=== PATIENT | male | born 1995 | race Caucasian/White ===

== ENCOUNTER 2017-11-07 11:16 | Emergency (ER) | payer OTHER ==
--- NOTE | 2017-11-07 13:18 | ED ---
Skin Complaint - HPI Summary HPI Summary: Pt here w/ forehead laceration at 1:00am today. Was doing clapping push ups on concrete when he fell forward and struck his face. Denies LOC, change in vision , nausea, vomiting, nasal or dental injury, neck pain, tinnitus, dizziness. He cleaned w/ antibacterial soap last night. Bleeding controlled. Here for aesthetic improvement. Believes his tetanus vaccine is UTD. Will confirm w Wong. - History of Current Complaint Chief Complaint: EDLacSutureRecheck Time Seen by Provider: 11/07/17 11:38 Stated Complaint: HEAD LAC Hx Obtained From: Patient Pain Intensity: 0 - Allergy/Home Medications Allergies/Adverse Reactions: Allergies Allergy/AdvReac Type Severity Reaction Status Date / Time No Known Allergies Allergy Verified 11/07/17 11:25 Home Medications: Home Medications FLUoxetine CAP* [PROzac CAP*] 20 mg PO DAILY 11/07/17 [History Confirmed ] PMH/Surg Hx/FS Hx/Imm Hx Previously Healthy: Yes Endocrine/Hematology History: Denies: Hx Anticoagulant Therapy, Hx Blood Disorders, Autoimmune Disease - Immunization History Immunizations Up to Date: Yes Infectious Disease History: No Infectious Disease History: Denies: Hx of Known/Suspected MRSA, Traveled Outside the [place] in Last 30 Days - Social History Occupation: Student Lives: Dormitory/Roommates Alcohol Use: Weekly Hx Substance Use: Yes Substance Use Type: Reports: Marijuana, Prescribed Hx Tobacco Use: Yes Smoking Status (MU): Current Some Day Smoker Review of Systems Constitutional: Negative Eyes: Negative ENT: Negative Cardiovascular: Negative Respiratory: Negative Gastrointestinal: Negative Positive: no symptoms reported Musculoskeletal: Negative Skin: Other - lac Neurological: Negative Psychological: Normal All Other Systems Reviewed And Are Negative: Yes Physical Exam Triage Information Reviewed: Yes Vital Signs On Initial Exam: Initial Vitals Temp Pulse Resp BP Pulse Ox 98.3 F 58 16 133/79 97 11/07/17 11:22 11/07/17 11:22 11/07/17 11:22 11/07/17 11:22 11/07/17 11:22 Vital Signs Reviewed: Yes Appearance: Positive: Well-Appearing, No Pain Distress, Well-Nourished Skin: Positive: Warm, Skin Color Reflects Adequate Perfusion, Dry - 2.5cm linear lac over central forehead - overlying abrasion - clean Head/Face: Positive: Normal Head/Face Inspection - no edema Eyes: Positive: Normal, EOMI, ESTRELLITA - no phgotophobia ENT: Positive: Hearing grossly normal Dental: Negative: Dental Fracture @ Neck: Positive: Supple, Nontender Respiratory/Lung Sounds: Positive: Breath Sounds Present Cardiovascular: Positive: Normal Musculoskeletal: Positive: Normal, Strength/ROM Intact Neurological: Positive: Normal, Sensory/Motor Intact, Alert, Oriented to Person Place, Time, CN Intact II-III Psychiatric: Positive: Normal Procedures - Laceration/Wound Repair 1 Location: face Description: Linear Length, Depth and Shape: 2.5cm x 2mm Betadine Prep?: No Laceration/Wound Explored: clean Closure: Skin Adhesive, SteriStrips Layer Closure?: No Diagnostics - Vital Signs Vital Signs Temp Pulse Resp BP Pulse Ox 11/07/17 12:41 55 146/83 99 11/07/17 12:40 58 98 11/07/17 11:22 98.3 F 58 16 133/79 97 - Laboratory Lab Statement: Any lab studies that have been ordered have been reviewed, and results considered in the medical decision making process. Course/Dx - Course Course Of Treatment: Patient's laceration approximated well with Steri-Strips and Dermabond. Given the overlying abrasion, was better fell to close wound without sutures. Discussed wound healing as well as scar prevention with patient. Also advised if his wound heals in a fashion he is not pleased with, he can consult with a plastic surgeon at a later date. Patient agrees with plan. - Diagnoses Provider Diagnoses: Facial laceration Discharge - Sign-Out/Discharge Documenting (check all that apply): Discharge/Admit/Transfer - Discharge Plan Condition: Stable Disposition: HOME Patient Education Materials: Skin Adhesive Care (ED), Steristrips (ED), Facial Laceration (ED) Referrals: [facility] - Wong LEMUS [Primary Care Provider] - Additional Instructions: Keep dressing clean and dry and in place for the next 48 hours. After that time , you may gently wash wound with soap and water, rinse well and pat dry with clean cloth. Apply triple antibiotic ointment to the outer edges, not over the steristrips. You may also apply clean, non-stick gauze dressing which you were given today. Continue this daily until steristrips fall off in 5 days - do not remove prematurely unless they become soiled. Call your PCP at [facility] to schedule wound recheck in 5 days. For pain, swelling you may apply an ice pack and/or take ibuprofen with food. * If you develop redness, swelling, streaking, purulent drainage, fevers or chills, seek medical attention sooner or return to the emergency department. - Billing Disposition and Condition Condition: STABLE Disposition: HOME
[2017-11-07 13:50] VITALS: BP 134/72
== END 2017-11-07 13:49 | disposition home or self-care (01) ==
LOC: ED 11:16
DX: S01.81XA Laceration without foreign body of other part of head, initial encounter (principal); W19.XXXA Unspecified fall, initial encounter; Y93.B2 Activity, push-ups, pull-ups, sit-ups; Y92.9 Unspecified place or not applicable; F17.200 Nicotine dependence, unspecified, uncomplicated
CPT/HCPCS: 12011; 99282